=== PATIENT | female | born 1935 | race Caucasian/White ===

== ENCOUNTER 2020-03-11 22:31 | Inpatient (IN) | payer MEDICARE, OTHER ==
--- NOTE | 2020-03-11 23:16 | EKG REPORT ---
SEVERITY:- ABNORMAL ECG - ATRIAL-VENTRICULAR DUAL-PACED COMPLEXES : Confirmed by: Jay Valdez 11-Mar-2020 23:15:38
--- NOTE | 2020-03-11 23:27 | ER Document Report ---
ED Respiratory Problem - General Chief Complaint: Shortness Of Breath Stated Complaint: DIFFICULTY BREATHING Time Seen by Provider: 03/11/20 23:15 Notes: Patient is an 84-year-old female that comes emergency department from a alf for chief complaint of difficulty breathing. Patient states she started having difficulty breathing starting this afternoon, EMS states that she was 94% on room air but dropped down to 90%, she was placed on nasal cannula, she was given 4 mg of Zofran for generalized sensation of nausea. Patient denies v omiting, chest pain, headache. She states she has been compliant with her medications. Past medical history of atrial fibrillation, CHF, AICD. She is on diltiazem, Eliquis, furosemide 20 mg daily. She denies smoking, NM, asthma, COPD. - Related Data Allergies/Adverse Reactions: No Known Allergies Allergy (Unverified 03/12/20 03:28) Past Medical History - General Information source: Patient, Outside Facility Records - Social History Smoking Status: Never Smoker Chew tobacco use (# tins/day): No Frequency of alcohol use: None Drug Abuse: None Lives with: [facility] Family History: Other - unable to obtain Patient has homicidal ideation: No - Past Medical History Cardiac Medical History: Reports: Hx Atrial Fibrillation, Hx Congestive Heart Failure, Hx Hypercholesterolemia, Hx Hypertension GI Medical History: Reports: Hx Gastroesophageal Reflux Disease Past Surgical History: Reports: Hx Pacemaker - Immunizations Hx Diphtheria, Pertussis, Tetanus Vaccination: Yes Review of Systems - Review of Systems Constitutional: See HPI EENT: No symptoms reported Cardiovascular: See HPI Respiratory: See HPI Gastrointestinal: See HPI Genitourinary: No symptoms reported Female Genitourinary: No symptoms reported Musculoskeletal: No symptoms reported Skin: No symptoms reported Hematologic/Lymphatic: No symptoms reported Neurological/Psychological: No symptoms reported Physical Exam - Vital signs Vitals: Resp BP Pulse Ox 27 H 148/59 H 92 03/11/20 22:33 03/11/20 22:33 03/11/20 22:33 - Notes Notes: GENERAL: Alert, interacts well. Appears anxious and has some tachypnea but is not in severe distress HEAD: Normocephalic, atraumatic. EYES: Pupils equal, round, and reactive to light. Extraocular movements intact. ENT: Oral mucosa moist, tongue midline. Oropharynx unremarkable. Airway patent. NECK: Full range of motion. Supple. Trachea midline. No lymphadenopathy. LUNGS: Bilateral Rales heard in the lower lung wynn, mild tachypnea. Clear lungs otherwise. Speaks in full sentences. HEART: Regular rate and rhythm. No murmur ABDOMEN: Soft, non-tender. Non-distended. EXTREMITIES: Moves all 4 extremities spontaneously. 1+ pitting edema bilaterally. BACK: no cervical, thoracic, lumbar midline tenderness. No saddle anesthesia, normal distal neurovascular exam. Moves all extremities in full range of motion. NEUROLOGICAL: Alert and oriented x3. Normal speech. Cranial nerves II through XII grossly intact. Strength 5/5 in all extremities. PSYCH: Speaks anxiously SKIN: Warm, dry, normal turgor. No rashes or lesions noted. Course - Re-evaluation Re-evalutation: Patient was on 4 L nasal cannula, I drop this down to 2 but then she started having desaturation her oxygen down to 89 and 90%. She was replaced on 3 and this seems to be the good balance. Patient has obvious rales in both lower lung wynn, she has bilateral lower extremity edema. She is not significantly hypertensive however. Chest x-ray shows pulmonary vascular congestion per my read, patchy consolidations and effusions per radiology read. BNP is elevated, troponin inde terminate. CBC and chemistry are nonspecific with slightly low potassium and creatinine of 2.5 (I do not have lab work previously for her baseline). Clinical picture is most consistent with CHF exacerbation. No fever, leukocytosis, or cough suggesting infectious cause. Patient will require hospi talization for hypoxia requiring oxygen, CHF exacerbation, difficulty breathing. I discussed with patient, she states full agreement with plan. Discussed with Dr. Medrano, hospitalist, patient accepted to [facility] full admission. - Vital Signs Vital signs: Temp Pulse Resp BP Pulse Ox 97.2 F 62 18 138/76 H 96 03/12/20 04:10 03/12/20 04:10 03/12/20 04:10 03/12/20 04:10 03/12/20 04:10 - Laboratory Result Diagrams: 03/12/20 00:01 03/12/20 00:01 Laboratory results interpreted by me: 03/12/20 03/12/20 03/12/20 00:01 00:01 00:01 MCV 98 H RDW 14.3 H Lymph % (Auto) 10.6 L Seg Neutrophils % 80.1 H VBG HCO3 Sodium 132.9 L Potassium 3.2 L Chloride 87 L Carbon Dioxide 36 H BUN 46 H Creatinine 2.50 H Est GFR ( Amer) 22 L Est GFR (MDRD) Non-Af 18 L NT-Pro-B Natriuret Pep 97664 H Albumin 3.4 L 03/12/20 00:31 MCV RDW Lymph % (Auto) Seg Neutrophils % VBG HCO3 37.9 H Sodium Potassium Chloride Carbon Dioxide BUN Creatinine Est GFR ( Amer) Est GFR (MDRD) Non-Af NT-Pro-B Natriuret Pep Albumin - EKG Interpretation by Me Additional EKG results interpreted by me: EKG shows atrial ventricular dual paced complexes, QTC 620, no overt T wave inversions or ST segment changes, no comparison. Discharge - Discharge Clinical Impression: Pulmonary vascular congestion, Hypoxia, Difficulty breathing Condition: Stable Disposition: ADMITTED INPATIENT Admitting Provider: Mitchell (Hospitalist) Unit Admitted: [facility]
--- NOTE | 2020-03-12 00:22 | RADIOLOGY REPORT (SQ) ---
EXAM DESCRIPTION: X-RAY CHEST- One View CLINICAL HISTORY: Shortness of breath COMPARISON: None TECHNIQUE: Single view of the chest. FINDINGS: There are overlying EKG leads. There are patchy bibasilar opacities with blunting of the bilateral costophrenic angles. The pulmonary vascularity is normal. The cardiomediastinal silhouette is mildly enlarged. Left chest wall cardiac pacer device is in place. There are atherosclerotic vascular calcifications. No suspicious lytic or blastic osseous lesions are identified. IMPRESSION: 1. Patchy bibasilar opacities with evidence of small pleural effusions bilaterally. Findings are nonspecific and differential diagnosis includes infectious and inflammatory causes. Clinical correlation is advised. 2. Mild enlargement of the cardiac silhouette with a cardiac pacer device in place.
[2020-03-12 00:26] LABS: ABSOLUTE BASOPHILS # (AUTO) 0.1 10^3/uL (0.0-0.2); ABSOLUTE MONOCYTES (AUTO) 0.7 10^3/uL (0.1-1.4); ABSOLUTE NEUT (AUTO) 7.4 10^3/uL (1.7-8.2); BASOPHILS % (AUTO) 0.8 % (0-2); EOSINOPHILS % (AUTO) 0.4 % (0-6); HEMATOCRIT 38.7 % (36.0-47.0); HEMOGLOBIN 12.9 g/dL (12.0-15.5); LYMPHOCYTES % (AUTO) 10.6 % (13-45); MEAN CORPUSCULAR HEMOGLOBIN 32.5 pg (27.0-33.4); MEAN CORPUSCULAR HGB CONC 33.2 g/dL (32.0-36.0); MEAN CORPUSCULAR VOLUME 98 fl (80-97); MONOCYTES % (AUTO) 8.1 % (3-13); PLATELET COUNT 279 10^3/uL (150-450); RED BLOOD COUNT 3.95 10^6/uL (3.72-5.28); RED CELL DISTRIBUTION WIDTH 14.3 % (11.5-14.0); SEGMENTED NEUTROPHILS % (AUTO) 80.1 % (42-78); TOTAL CELLS COUNTED % (AUTO) 100 %; WHITE BLOOD COUNT 9.2 10^3/uL (4.0-10.5)
[2020-03-12 00:39] LABS: ALBUMIN 3.4 g/dL (3.5-5.0); ALKALINE PHOSPHATASE 93 U/L (38-126); ANION GAP 10 (5-19); ASPARTATE AMINO TRANSFERASE 24 U/L (14-36); BILIRUBIN,DIRECT 0.2 mg/dL (0.0-0.4); BLOOD UREA NITROGEN 46 mg/dL (7-20); CALCIUM 9.5 mg/dL (8.4-10.2); CARBON DIOXIDE 36 mmol/L (22-30); CHLORIDE 87 mmol/L (98-107); GLUCOSE 109 mg/dL (75-110); POTASSIUM 3.2 mmol/L (3.6-5.0); TOTAL PROTEIN 6.3 g/dL (6.3-8.2)
[2020-03-12 00:52] LABS: TROPONIN I 0.024 ng/mL
[2020-03-12 00:54] LABS: VENOUS BLOOD BASE EXCESS 10.9 mmol/L; VENOUS BLOOD HCO3 37.9 mmol/L (20-32); VENOUS BLOOD PCO2 60.8 mmHg (35-63); VENOUS BLOOD PH 7.41 (7.30-7.42)
[2020-03-12] MEDS ORDERED: FUROSEMIDE INJ/PF 20 MG/2 ML SDV IV ONE (01:03)
[2020-03-12] MEDS ORDERED: NITROGLYCERIN 5 MG (0.2 MG/HR) PATCH.TD24 TD ONE (01:03)
[2020-03-12] MEDS ORDERED: POTASSIUM CHLORIDE 10 MEQ TABLET.ER PO ONE (01:03)
[2020-03-12] MEDS ORDERED: MORPHINE SULFATE 10 MG/ML INJ IV ONE (01:09)
[2020-03-12] MEDS ORDERED: NITROGLYCERIN 2% OINTMENT 1 GM PACKET TP ONE (01:09)
[2020-03-12] MEDS ORDERED: ONDANSETRON HCL INJ/PF 4 MG/2 ML SDV IV PRN (02:21)
[2020-03-12] MEDS ORDERED: MAG HYDROX/AL HYDROX/SIMETH SUSP 30 ML UDCUP PO PRN ×2 (02:21→11:58)
[2020-03-12] MEDS ORDERED: ACETAMINOPHEN 325 MG TABLET PO PRN ×2 (02:21→12:35)
[2020-03-12] MEDS ORDERED: MAGNESIUM HYDROXIDE SUSP 30 ML UDCUP PO PRN (02:21)
[2020-03-12] MEDS ORDERED: LORAZEPAM INJ 2 MG/1 ML VIAL IV PRN (02:28)
[2020-03-12] MEDS ORDERED: MORPHINE SULFATE 10 MG/ML INJ IV PRN ×5 (02:28→02:37)
[2020-03-12] MEDS ORDERED: GUAIFENESIN SYRP 200 MG/10 ML UDC PO PRN (02:28)
--- NOTE | 2020-03-12 06:23 | PDOC H&P ---
History of Present Illness Admission Date/PCP: 03/12/2020 01:51 DEMARIO CASTRO NP Patient complains of: Dyspnea History of Present Illness: JONELLE BARREINTOS is a 84 year old female who presented to the emergency room with acute dyspnea. She admits suddenly developing dyspnea on the afternoon of 03/11/2020. Her dyspnea was accompanied with a drop in her oxygen saturation from 94% on room air to 90% and was improved back to 94% after administration of oxygen via nasal cannula. Her dyspnea was accompanied by nausea without vomiting and was worsened with even minor exertion. She denies other associated or accompanying signs and symptoms. She admits prior similar episodes with her heart problems. She has not identified any additional aggravating or ameliorating factors for her dyspnea. In the emergency room she was found to have acute vascular congestive changes on her chest x-ray and her physical examination confirmed acute congestive heart failure. She was treated with IV morphine, intravenous Lasix and topical nitroglycerin paste in the emergency room with improvement in her status. She was subsequently admitted to the hospital for further evaluation and treatment. Past Medical History Cardiac Medical History: Reports: Atrial Fibrillation, Congestive Heart Failure, Hyperlipidema, Hypertension Pulmonary Medical History: Denies: Asthma, Chronic Obstructive Pulmonary Disease (COPD) EENT Medical History: Denies: Cataracts, Ears - Hearing aids Neurological Medical History: Denies: Hemorrhagic CVA, Ischemic CVA, Seizures Endocrine Medical History: Denies: Diabetes Mellitus Type 1, Diabetes Mellitus Type 2, Hyperthyroidism, Hypothyroidism Renal/ Medical History: Denies: Chronic Kidney Disease, Nephrolithiasis Malignancy Medical History: Reports: None GI Medical History: Reports: Diverticulitis, Gastroesophageal Reflux Disease, Other - Hemorrhoids Denies: Cirrhosis, Hepatitis, Peptic Ulcer Disease Musculoskeltal Medical History: Denies: Arthritis, Gout Skin Medical History: Denies: Eczema, Psoriasis Psychiatric Medical History: Denies: Alcohol Dependency, Substance Abuse, Tobacco Dependency Traumatic Medical History: Reports: None Hematology: Denies: Anemia, Bleeding Tendencies Infectious Medical History: Reports: None Past Surgical History Past Surgical History: Reports: Appendectomy, Cholecystectomy, Pacemaker - AICD, Other - Hemorrhoidectomy, segmental colectomy for diverticulitis, breast biopsy Social History Information Source: Patient Lives with: Longterm Smoking Status: Never Smoker Electronic Cigarette use?: No Frequency of Alcohol Use: None Hx Recreational Drug Use: No Drugs: None Hx Prescription Drug Abuse: No - Advance Directive Resuscitation Status: Full Code Surrogate healthcare decision maker:: Sukhdev Barrientos Family History Family History: CAD. denies: DM, Hypertension, Malignancy Parental Family History Reviewed: Yes Children Family History Reviewed: No Sibling(s) Family History Reviewed.: Yes Medication/Allergy Allergies/Adverse Reactions: No Known Allergies Allergy (Unverified 03/12/20 03:28) Review of Systems Constitutional: ABSENT: chills, fever(s) Eyes: ABSENT: visual disturbances, other - Eye pain Ears: ABSENT: hearing changes, other - Ear pain Nose, Mouth, and Throat: ABSENT: headache(s), sore throat Cardiovascular: PRESENT: as per HPI, dyspnea on exertion. ABSENT: chest pain, palpitations Respiratory: PRESENT: as per HPI, dyspnea. ABSENT: cough Gastrointestinal: PRESENT: nausea. ABSENT: abdominal pain, vomiting Genitourinary: ABSENT: dysuria, hematuria Musculoskeletal: ABSENT: back pain, joint swelling Integumentary: ABSENT: pruritus, rash Neurological: ABSENT: confusion, convulsions, focal weakness, memory loss, syncope Psychiatric: ABSENT: anxiety, depression Endocrine: ABSENT: cold intolerance, heat intolerance Hematologic/Lymphatic: ABSENT: easy bleeding, easy bruising Allergic/Immunologic: ABSENT: seasonal rhinorrhea Physical Exam Vital Signs: Temp Pulse Resp BP Pulse Ox 97.6 F 03/11/20 22:36 Intake & Output 03/10/20 03/11/20 03/12/20 23:59 23:59 23:59 Weight 60.1 kg General appearance: PRESENT: no acute distress, cooperative, other - On supplemental oxygen via nasal cannula at the time of my evaluation Head exam: PRESENT: atraumatic, normocephalic Eye exam: PRESENT: conjunctiva pink. ABSENT: conjunctival injection, scleral icterus Ear exam: PRESENT: normal external ear exam. ABSENT: bleeding, drainage Mouth exam: PRESENT: dry mucosa, neck supple Neck exam: PRESENT: JVD - Bilateral at 30 degrees elevation. ABSENT: thyromegaly, tracheal deviation Respiratory exam: PRESENT: rales - Fine rales in the lower one third of both lung wynn., symmetrical, tachypnea Cardiovascular exam: PRESENT: gallop - S4 gallop rhythm, RRR. ABSENT: clicks, rubs Pulses: PRESENT: normal radial pulses, normal dorsalis pedis pul Vascular exam: PRESENT: normal capillary refill. ABSENT: pallor GI/Abdominal exam: PRESENT: normal bowel sounds, soft. ABSENT: tenderness Rectal exam: PRESENT: deferred Extremities exam: PRESENT: pedal edema - Trace bipedal edema, other - Trace bilateral pretibial edema Musculoskeletal exam: ABSENT: deformity, dislocation Neurological exam: PRESENT: alert, oriented to person, oriented to place, oriented to time, oriented to situation, CN II-XII grossly intact. ABSENT: motor sensory deficit Psychiatric exam: PRESENT: appropriate affect, normal mood Skin exam: PRESENT: dry, intact, warm. ABSENT: jaundice, rash, urticaria Results Laboratory Results: 03/12/20 00:01 03/12/20 00:01 03/12/20 03/12/20 03/12/20 00:01 00:01 00:31 WBC 9.2 RBC 3.95 Hgb 12.9 Hct 38.7 MCV 98 H MCH 32.5 MCHC 33.2 RDW 14.3 H Plt Count 279 Seg Neutrophils % 80.1 H VBG pH 7.41 VBG pCO2 60.8 VBG HCO3 37.9 H VBG Base Excess 10.9 Sodium 132.9 L Potassium 3.2 L Chloride 87 L Carbon Dioxide 36 H Anion Gap 10 BUN 46 H Creatinine 2.50 H Est GFR ( Amer) 22 L Glucose 109 Calcium 9.5 Total Bilirubin 1.0 AST 24 Alkaline Phosphatase 93 Total Protein 6.3 Albumin 3.4 L 03/12/20 00:01 Troponin I 0.024 NT-Pro-B Natriuret Pep 04177 H Impressions: Chest X-Ray 03/11/20 23:22 IMPRESSION: 1. Patchy bibasilar opacities with evidence of small pleural effusions bilaterally. Findings are nonspecific and differential diagnosis includes infectious and inflammatory causes. Clinical correlation is advised. 2. Mild enlargement of the cardiac silhouette with a cardiac pacer device in place. Assessment and Plan - Diagnosis (1) Acute respiratory failure with hypoxia Is this a current diagnosis for this admission?: Yes (2) Acute pulmonary edema with congestive heart failure Is this a current diagnosis for this admission?: Yes (3) Chronic diastolic congestive heart failure Is this a current diagnosis for this admission?: Yes (4) Paroxysmal atrial fibrillation Is this a current diagnosis for this admission?: Yes (5) Chronic anticoagulation Is this a current diagnosis for this admission?: Yes (6) Essential hypertension Is this a current diagnosis for this admission?: Yes (7) Hyperlipidemia Qualifiers: Hyperlipidemia type: unspecified Qualified Code(s): E78.5 - Hyperlipidemia, unspecified Is this a current diagnosis for this admission?: Yes (8) Gastroesophageal reflux disease Qualifiers: Esophagitis presence: esophagitis presence not specified Qualified Code(s): K21.9 - Gastro-esophageal reflux disease without esophagitis Is this a current diagnosis for this admission?: Yes - Plan Summary Summary: Patient will be admitted to [facility] where she will receive routine supportive and symptomatic cares. Patient will be admitted on the congestive heart failure protocol. Consultation with Dr. Lazar will be obtained. An echocardiogram will be obtained. Patient will be treated with morphine sulfate 2 mg IV every hour as needed for severe dyspnea. She will have 1/2 inch of 2% nitroglycerin ointment applied every 6 hours. She received Lasix 40 mg IV in the ER with further dosing at Dr. Lazar's direction. She will receive morphine sulfate 2 to 4 mg IV every 2 hours as needed for pain. She will receive Ativan 1 mg IV every 4 hours as needed anxiety or restlessness. She will be on a cardiac diet. Serial cardiac enzymes and other studies will be obtained per the congestive heart failure protocol. Patient will be resumed on her usual home medications since her medication list can be verified and reconciled. - Time Time Spent with patient: 15-24 minutes Anticipated Discharge Disposition: Assisted Living with Home Health Services Anticipated Discharge Timeframe: within 72 hours - Inpatient Certification Based on my medical assessment, after consideration of the patient's comorbidities, presenting symptoms, or acuity I expect that the services needed warrant INPATIENT care.: Yes I certify that my determination is in accordance with my understanding of Medicare's requirements for reasonable and necessary INPATIENT services [42 CFR 412.3e].: Yes Medical Necessity: Need Close Monitoring Due to Risk of Patient Decompensation, Need For Continuous Telemetry Monitoring, Risk of Complication if Not Cared For in Hospital
[2020-03-12] MEDS: NITROGLYCERIN 2% OINTMENT 1 GM PACKET TP SCH ×3 (07:13→19:43)
[2020-03-12] MEDS ORDERED: DOCUSATE SODIUM 100 MG CAPSULE PO SCH (10:00)
[2020-03-12] MEDS ORDERED: FAMOTIDINE 20 MG TABLET PO SCH (10:00)
[2020-03-12 10:26] LABS: CREATINE KINASE MB 0.65 ng/mL (<4.55); TROPONIN I 0.022 ng/mL
[2020-03-12] MEDS ORDERED: (PENDING PHARMACY ID) (Acetaminophen [Acetaminophen] 500 MG) PO PRN (10:49)
[2020-03-12] MEDS ORDERED: ALUMINUM HYD PO PRN (10:49)
[2020-03-12] MEDS ORDERED: GUAIFENESIN PO PRN (10:49)
[2020-03-12] MEDS ORDERED: LOPERAMIDE HCL 4 MG PO PRN (10:49)
[2020-03-12] MEDS ORDERED: MAG HYDROX PO PRN (10:49)
[2020-03-12] MEDS ORDERED: METHOCARBAMOL 500 MG TABLET PO PRN (10:49)
[2020-03-12] MEDS ORDERED: DEXTROMETHORPHAN PO PRN (10:49)
[2020-03-12] MEDS ORDERED: SIMETH PO PRN (10:49)
[2020-03-12] MEDS ORDERED: [UNRECOGNIZED DRUG - OTHER] PO PRN (10:49)
[2020-03-12] MEDS ORDERED: ACETAMINOPHEN PO PRN (10:49)
[2020-03-12] MEDS ORDERED: (PENDING PHARMACY ID) (Ondansetron Hcl [Ondansetron Hcl] 4 MG) PO PRN (10:49)
[2020-03-12] MEDS ORDERED: [UNRECOGNIZED DRUG - OTHER] PO PRN (10:49)
[2020-03-12] MEDS ORDERED: OXYCODONE HCL PO PRN (10:49)
--- NOTE | 2020-03-12 10:52 | PDOC PROGRESS REPORT ---
Subjective Progress Note for:: 03/12/20 Subjective:: 84 year old female who presented to the emergency room with acute dyspnea. She admits suddenly developing dyspnea on the afternoon of 03/11/2020. Her dyspnea was accompanied with a drop in her oxygen saturation from 94% on room air to 90% and was improved back to 94% after administration of oxygen via nasal cannula. Her dyspnea was accompanied by nausea without vomiting and was worsened with even minor exertion. She denies other associated or accompanying signs and symptoms. She admits prior similar episodes with her heart problems. She has not identified any additional aggravating or ameliorating factors for her dyspnea. In the emergency room she was found to have acute vascular congestive changes on her chest x-ray and her physical examination confirmed acute congestive heart failure. She was treated with IV morphine, intravenous Lasix and topical nitroglycerin paste in the emergency room with improvement in her status. She was subsequently admitted to the hospital for further evaluation and treatment. 03/12/2020-elderly female comfortable in the bed communicating well. Not in distress. Pulse ox 93% on 3.5 lts consultation with cardiology requested. Reason For Visit: ACUTE ON CHRONIC DIASTOLIC CONGESTIVE HEART FAILUR Physical Exam Vital Signs: Temp Pulse Resp BP Pulse Ox 97.3 F 63 22 H 130/57 H 93 03/12/20 07:35 03/12/20 07:35 03/12/20 07:35 03/12/20 07:35 03/12/20 07:35 Intake & Output 03/11/20 03/12/20 03/13/20 06:59 06:59 06:59 Weight 58 kg General appearance: PRESENT: no acute distress, cooperative, thin Head exam: PRESENT: atraumatic Eye exam: PRESENT: conjunctiva pink, PERRLA Ear exam: PRESENT: normal external ear exam Mouth exam: PRESENT: dry mucosa, neck supple Neck exam: PRESENT: JVD Respiratory exam: PRESENT: crackles, decreased breath sounds Cardiovascular exam: PRESENT: RRR. ABSENT: diastolic murmur, rubs, systolic murmur GI/Abdominal exam: PRESENT: normal bowel sounds, soft. ABSENT: distended, guarding, mass, organolmegaly, rebound, tenderness Rectal exam: PRESENT: deferred Extremities exam: PRESENT: full ROM. ABSENT: calf tenderness, clubbing, pedal edema Neurological exam: PRESENT: alert, awake, oriented to person, oriented to place, oriented to time, oriented to situation, CN II-XII grossly intact. ABSENT: motor sensory deficit Psychiatric exam: PRESENT: appropriate affect, normal mood. ABSENT: homicidal ideation, suicidal ideation Results Laboratory Results: 03/12/20 00:01 03/12/20 00:01 03/12/20 03/12/20 03/12/20 00:01 00:01 00:01 WBC 9.2 RBC 3.95 Hgb 12.9 Hct 38.7 MCV 98 H MCH 32.5 MCHC 33.2 RDW 14.3 H Plt Count 279 Seg Neutrophils % 80.1 H VBG pH VBG pCO2 VBG HCO3 VBG Base Excess Sodium 132.9 L Potassium 3.2 L Chloride 87 L Carbon Dioxide 36 H Anion Gap 10 BUN 46 H Creatinine 2.50 H Est GFR ( Amer) 22 L Glucose 109 Calcium 9.5 Magnesium 2.2 Total Bilirubin 1.0 AST 24 Alkaline Phosphatase 93 Total Protein 6.3 Albumin 3.4 L 03/12/20 00:31 WBC RBC Hgb Hct MCV MCH MCHC RDW Plt Count Seg Neutrophils % VBG pH 7.41 VBG pCO2 60.8 VBG HCO3 37.9 H VBG Base Excess 10.9 Sodium Potassium Chloride Carbon Dioxide Anion Gap BUN Creatinine Est GFR ( Amer) Glucose Calcium Magnesium Total Bilirubin AST Alkaline Phosphatase Total Protein Albumin 03/12/20 03/12/20 03/12/20 00:01 09:25 09:25 Creatine Kinase 36 CK-MB (CK-2) 0.65 Troponin I 0.024 0.022 NT-Pro-B Natriuret Pep 98799 H Impressions: Chest X-Ray 03/11/20 23:22 IMPRESSION: 1. Patchy bibasilar opacities with evidence of small pleural effusions bilaterally. Findings are nonspecific and differential diagnosis includes infectious and inflammatory causes. Clinical correlation is advised. 2. Mild enlargement of the cardiac silhouette with a cardiac pacer device in place. Assessment and Plan - Diagnosis (1) Acute respiratory failure with hypoxia Is this a current diagnosis for this admission?: Yes Plan: 03/12/2020-patient admitted with acute respiratory failure with hypoxia most likely secondary to acute on chronic exacerbation of CHF. Pulse ox is 93% on 3.5 L oxygen. Plan is to continue the present management at this time. (2) Acute pulmonary edema with congestive heart failure Is this a current diagnosis for this admission?: Yes Plan: 03/12/2020-patient admitted with acute pulmonary edema secondary to acute on chronic CHF exacerbation. Plan is to request for echocardiogram consultation with cardiology is requested that this time. Patient received 1 dose of IV Lasix in the ER. At this time patient is not on Lasix awaiting further cardiology recommendations. (3) Essential hypertension Is this a current diagnosis for this admission?: No Plan: Weight 1120-patient blood pressure this morning is 130/60. Stable. Patient is not on antihypertensives at this time. (4) Paroxysmal atrial fibrillation Is this a current diagnosis for this admission?: No Plan: 03/12/2020-patient has history of paroxysmal atrial fibrillation heart rate is 63 today. Patient is on Eliquis at home plan is to resume the medication during the hospital stay. (5) Gastroesophageal reflux disease Qualifiers: Esophagitis presence: esophagitis presence not specified Qualified Code(s): K21.9 - Gastro-esophageal reflux disease without esophagitis Is this a current diagnosis for this admission?: No (6) Chronic anticoagulation Is this a current diagnosis for this admission?: No Plan: 03/12/2020-patient is on Eliquis at home. Plan is to continue the medication during the hospital stay. - Plan Summary Summary: Patient will be admitted to [facility] where she will receive routine supportive and symptomatic cares. Patient will be admitted on the congestive heart failure protocol. Consultation with Dr. Lazar will be obtained. An echocardiogram will be obtained. Patient will be treated with morphine sulfate 2 mg IV every hour as needed for severe dyspnea. She will have 1/2 inch of 2% nitroglycerin ointment applied every 6 hours. She received Lasix 40 mg IV in the ER with further dosing at Dr. Lazar's direction. She will receive morphine sulfate 2 t o 4 mg IV every 2 hours as needed for pain. She will receive Ativan 1 mg IV every 4 hours as needed anxiety or restlessness. She will be on a cardiac diet. Serial cardiac enzymes and other studies will be obtained per the congestive heart failure protocol. Patient will be resumed on her usual home medications since her medication list can be verified and reconciled. - Time Anticipated Discharge Disposition: Home, Self Care Anticipated Discharge Timeframe: within 72 hours
[2020-03-12] MEDS ORDERED: GUAIFENESIN/D-METHORPHAN (200-20 MG) SYRUP 10 ML PO PRN (11:56)
[2020-03-12] MEDS ORDERED: LOPERAMIDE HCL 2 MG CAPSULE PO PRN (12:00)
[2020-03-12] MEDS ORDERED: OXYCODONE-ACETAMINOPHEN 5-325 MG TABLET PO PRN (12:10)
[2020-03-12] MEDS ORDERED: OXYCODONE HCL IR 5 MG TABLET PO PRN (12:33)
[2020-03-12] MEDS ORDERED: CALCIUM CARBONATE 600 MG/VITAMIN D3 400 UNIT TABLET PO SCH (13:00)
[2020-03-12] MEDS ORDERED: HEPARIN SOD (PORCINE) 5,000 UNIT/ML 1 ML VIAL SUBCUT SCH (14:00)
[2020-03-12] MEDS ORDERED: IPRATROPIUM/ALBUTEROL 0.5-2.5 MG/3 ML AMPUL NEB PRN (17:35)
[2020-03-12] MEDS ORDERED: FLUMAZENIL INJ 0.5 MG/5 ML VIAL ONE (17:41)
[2020-03-12] MEDS ORDERED: APIXABAN 2.5 MG TABLET PO SCH (18:00)
--- NOTE | 2020-03-12 18:01 | RADIOLOGY REPORT (SQ) ---
EXAM DESCRIPTION: CHEST SINGLE VIEW IMAGES COMPLETED DATE/TIME: 03/12/2020 5:26 pm REASON FOR STUDY: SOB COMPARISON: 03/11/2020 EXAM PARAMETERS: NUMBER OF VIEWS: One view. TECHNIQUE: Single frontal radiographic view of the chest acquired. RADIATION DOSE: NA LIMITATIONS: None. FINDINGS: LUNGS AND PLEURA: Bilateral pleural effusions. There is opacification in the medial aspec t of the right upper lobe. There is mild perihilar opacification on the right more than left. MEDIASTINUM AND HILAR STRUCTURES: No masses. Contour normal. HEART AND VASCULAR STRUCTURES: Heart size is borderline. No yvonne pulmonary edema. BONES: No acute findings. HARDWARE: Pacemaker. OTHER: No other significant finding. IMPRESSION: Borderline cardiomegaly with no yvonne pulmonary edema. Bilateral pleural effusions. Ca nnot exclude airspace disease in the right upper lobe and in the perihilar region on the right. Frankie ot exclude an atypical infectious/ inflammatory process. TECHNICAL DOCUMENTATION: JOB ID: [id number] 2010 [employer]- All Rights Reserved Reading location - IP/workstation name: [email or web address]
[2020-03-12] MEDS ORDERED: SODIUM BICARBONATE 8.4% INJ 50 MEQ/50 ML DISP.SYRIN ONE ×2 (18:03→20:00)
--- NOTE | 2020-03-12 18:03 | RADIOLOGY REPORT (SQ) ---
EXAM DESCRIPTION: KUB/ABDOMEN (SINGLE VIEW) IMAGES COMPLETED DATE/TIME: 03/12/2020 5:26 pm REASON FOR STUDY: abd pain COMPARISON: None. NUMBER OF VIEWS: One view. TECHNIQUE: Supine radiographic image of the abdomen acquired. LIMITATIONS: None. FINDINGS: BOWEL GAS PATTERN: Normal bowel gas pattern. No dilated loops. CALCIFICATIONS: No suspicious calcifications. SOFT TISSUES: No gross mass or suggestion of organomegaly. HARDWARE: None in the abdomen. BONES: No acute fracture. No worrisome bone lesions. OTHER: No other significant finding. IMPRESSION: NO RADIOGRAPHIC EVIDENCE FOR ACUTE ABDOMINAL DISEASE. TECHNICAL DOCUMENTATION: JOB ID: [id number] 2010 [email or web address]- All Rights Reserved Reading location - IP/workstation name: [email or web address]
[2020-03-12 18:16] LABS: ANION GAP 12 (5-19); BLOOD UREA NITROGEN 48 mg/dL (7-20); CALCIUM 9.3 mg/dL (8.4-10.2); CARBON DIOXIDE 34 mmol/L (22-30); CHLORIDE 89 mmol/L (98-107); GLUCOSE 116 mg/dL (75-110)
[2020-03-12 18:20] LABS: CREATINE KINASE MB 0.61 ng/mL (<4.55); TROPONIN I 0.023 ng/mL
[2020-03-12] MEDS ORDERED: DOPAMINE HCL/DEXTROSE 5%-WATER 800 MG/250 ML RTUINJ IV PRN (18:20)
[2020-03-12 18:24] LABS: POTASSIUM 4.4 mmol/L (3.6-5.0)
--- NOTE | 2020-03-12 18:53 | Progress Note ---
Provider Note Provider Note: 84-year-old female admitted for CHF exacerbation around 5:30 PM the nurses called me and told me patient is aspirated after vomiting and pulse oxes are in the 80s I went to see the patient on arrival noticed that patient is not breathing so we called the rapid response and called respiratory therapist started bagging providing oxygen with Ambu bag during the process we lost the pulse we tried to intubate her twice it was unsuccessful and anesthesiologist came and intubated the patient after 20 minutes of CPR Juan is obtained we gave a couple doses of epi, bicarb, calcium gluconate, atropine during the CPR. During the process we gave 200 J of shock 1 time after 20 minutes of CPR [place] is attained. Patient was started on dopamine drip and we moved her to ICU for further management. Postintubation chest x-ray will be requested. I called the family members and left a message to call us back. Still overall prognosis poor condition is critical at this time. Signout was given to the tack cutter at this time. My impression is acute respiratory failure most likely secondary to aspiration pneumonia.
--- NOTE | 2020-03-12 19:36 | EKG REPORT ---
SEVERITY:- ABNORMAL ECG - ATRIAL-PACED RHYTHM Probably V paced rhythm : Confirmed by: David Lazar MD 12-Mar-2020 19:36:17
--- NOTE | 2020-03-12 19:49 | PDOC CONSULTATION ---
Consultation Consult Date: 03/12/20 Provider Consulted: TIEN IRENE Consult reason:: Congestive heart failure History of Present Illness Admission Date/PCP: 03/12/20 01:54 DEMARIO CASTRO NP Patient complains of: Unable to voice complaints. History of Present Illness: JONELLE BARRIENTOS is a 84 year old female Who was admitted to the hospital with suspicion of acute decompensated congestive heart failure. At the time of my evaluation patient had experienced an acute respiratory arrest after having an episode of emesis likely due to aspiration of vomitus. Patient was successfully resuscitated. She was started on pressors and also received atropine. Further history cannot be obtained. Past Medical History Cardiac Medical History: Reports: Atrial Fibrillation, Congestive Heart Failure, Hyperlipidema, Hypertension Pulmonary Medical History: Denies: Asthma, Chronic Obstructive Pulmonary Disease (COPD) EENT Medical History: Denies: Cataracts, Ears - Hearing aids Neurological Medical History: Denies: Hemorrhagic CVA, Ischemic CVA, Seizures Endocrine Medical History: Denies: Diabetes Mellitus Type 1, Diabetes Mellitus Type 2, Hyperthyroidism, Hypothyroidism Renal/ Medical History: Denies: Chronic Kidney Disease, Nephrolithiasis Malignancy Medical History: Reports: None GI Medical History: Reports: Diverticulitis, Gastroesophageal Reflux Disease, Other - Hemorrhoids Denies: Cirrhosis, Hepatitis, Peptic Ulcer Disease Musculoskeltal Medical History: Denies: Arthritis, Gout Skin Medical History: Denies: Eczema, Psoriasis Psychiatric Medical History: Denies: Alcohol Dependency, Depression, Substance Abuse, Tobacco Dependency Traumatic Medical History: Reports: None Hematology: Denies: Anemia, Bleeding Tendencies Infectious Medical History: Reports: None Past Surgical History Past Surgical History: Reports: Appendectomy, Cholecystectomy, Pacemaker, Other - Hemorrhoidectomy, segmental colectomy for diverticulitis, breast biopsy Social History Lives with: Custodial Smoking Status: Never Smoker Electronic Cigarette use?: No Frequency of Alcohol Use: None Hx Recreational Drug Use: No Drugs: None Hx Prescription Drug Abuse: No - Advance Directive Resuscitation Status: Full Code Family History Family History: Other - unable to obtain Parental Family History Reviewed: No - Patient is unresponsive. Cannot be obtained Children Family History Reviewed: NA Sibling(s) Family History Reviewed.: NA Medication/Allergy Home Medications: Acetaminophen 500 mg PO Q4HP PRN 03/12/20 Acetaminophen [Tylenol] 325 mg PO DAILY 03/12/20 Allopurinol [Zyloprim 300 mg Tablet] 300 mg PO DAILY 03/12/20 Apixaban [Eliquis 2.5 mg Tablet] 2.5 mg PO BID 03/12/20 Atorvastatin Calcium [Lipitor 10 mg Tablet] 10 mg PO QHS 03/12/20 Calcium Carbonate/Vitamin D3 [Calcium 600-Vit D3 200 Tablet] 1 each PO DAILY 03/12/20 Diltiazem HCl [Cardizem Cd 120 mg Capsule] 120 mg PO DAILY 03/12/20 Ferrous Sulfate [Feosol 325 mg Tablet] 325 mg PO DAILY 03/12/20 Flecainide Acetate [Tambocor 100 Mg Tablet] 75 mg PO QHS 03/12/20 Flecainide Acetate [Tambocor 100 Mg Tablet] 150 mg PO QAM 03/12/20 Furosemide [Lasix] 20 mg PO DAILY 03/12/20 Gemfibrozil [Lopid 600 mg Tablet] 600 mg PO DAILY 03/12/20 Guaifenesin [Robafen] 10 ml PO Q4HP PRN 03/12/20 Guaifenesin/Dextromethorphan [Robafen Dm Cough 100-10 mg/5Ml] 10 ml PO Q4HP PRN 03/12/20 Hydrochlorothiazide [Hydrodiuril 25 mg Tablet] 25 mg PO DAILY 03/12/20 Loperamide HCl [Imodium A-D] 4 mg PO PRN PRN 03/12/20 Mag Hydrox/Aluminum Hyd/Simeth [Dedra-Lanta Liquid] 30 ml PO Q4HP PRN 03/12/20 Magnesium Hydroxide [Milk of Magnesia 30 ml Udcup] 30 ml PO DAILYP PRN 03/12/20 Methocarbamol [Robaxin 500 mg Tablet] 1,000 mg PO TIDP PRN 03/12/20 Neomycin/Bacitracin/Polymyxinb [Triple Antibiotic Ointment] 1 each TP DAILY 03/12/20 Ondansetron HCl 4 mg PO Q8HP PRN 03/12/20 Oxycodone HCl/Acetaminophen [Oxycodon-Acetaminophen 2.5-325] 1 each PO DAILYP PRN 03/12/20 Pantoprazole Sodium [Protonix [address] Tablet] 40 mg PO QAM 03/12/20 Allergies/Adverse Reactions: No Known Allergies Allergy (Unverified 03/12/20 03:28) Review of Systems ROS unobtainable: Due to endotracheal tube, Due to mental status Physical Exam Vital Signs: Temp Pulse Resp BP Pulse Ox 97.7 F 61 20 141/91 H 100 03/12/20 16:31 03/12/20 16:31 03/12/20 16:31 03/12/20 16:31 03/12/20 18:51 Intake & Output 03/11/20 03/12/20 03/13/20 06:59 06:59 06:59 Weight 58 kg General appearance: PRESENT: mild distress Head exam: PRESENT: atraumatic, normocephalic Eye exam: PRESENT: conjunctiva pale Respiratory exam: PRESENT: decreased breath sounds, symmetrical Cardiovascular exam: PRESENT: +S1, +S2, other - Left upper chest wall has permanent pacemaker pocket. Well-healed. No surface excoriation or edema or hematoma Pulses: PRESENT: other - Pulses are faint Neurological exam: PRESENT: other - Unable to assess. Obtunded Skin exam: PRESENT: dry, intact Results Laboratory Results: 03/12/20 00:01 03/12/20 17:30 03/12/20 03/12/20 03/12/20 00:01 00:01 00:01 WBC 9.2 RBC 3.95 Hgb 12.9 Hct 38.7 MCV 98 H MCH 32.5 MCHC 33.2 RDW 14.3 H Plt Count 279 Seg Neutrophils % 80.1 H VBG pH VBG pCO2 VBG HCO3 VBG Base Excess Sodium 132.9 L Potassium 3.2 L Chloride 87 L Carbon Dioxide 36 H Anion Gap 10 BUN 46 H Creatinine 2.50 H Est GFR ( Amer) 22 L Glucose 109 Calcium 9.5 Magnesium 2.2 Total Bilirubin 1.0 AST 24 Alkaline Phosphatase 93 Total Protein 6.3 Albumin 3.4 L 03/12/20 03/12/20 03/12/20 00:31 17:30 17:30 WBC RBC Hgb Hct MCV MCH MCHC RDW Plt Count Seg Neutrophils % VBG pH 7.41 VBG pCO2 60.8 VBG HCO3 37.9 H VBG Base Excess 10.9 Sodium 134.5 L Potassium 4.4 D Chloride 89 L Carbon Dioxide 34 H Anion Gap 12 BUN 48 H Creatinine 2.74 H Est GFR ( Amer) 20 L Glucose 116 H Calcium 9.3 Magnesium 2.2 Total Bilirubin AST Alkaline Phosphatase Total Protein Albumin 08/11/20 08/11/20 08/11/20 00:01 09:25 09:25 Creatine Kinase 36 CK-MB (CK-2) 0.65 Troponin I 0.024 0.022 NT-Pro-B Natriuret Pep [id number] H 03/12/20 03/12/20 03/12/20 17:30 17:30 17:30 Creatine Kinase 39 CK-MB (CK-2) 0.61 Troponin I 0.023 Cancelled NT-Pro-B Natriuret Pep [id number] H EKG Comments: Chest x-ray 03/11/2020 Left-sided dual-chamber permanent pacemaker bilateral pulmonary edema Twelve-lead EKG 03/11/2020 AV paced rhythm Transthoracic echocardiogram 03/12/2020. Left ventricular ejection fraction is moderately diminished and is estimated at 35 to 40% Moderate mitral regurgitation and moderate aortic insufficiency are noted Small pericardial effusion without tamponade physiology Postcode EKG 03/12/2020 Ventricular paced rhythm 44 bpm Impressions: Chest X-Ray 03/12/20 00:00 IMPRESSION: Borderline cardiomegaly with no yvonne pulmonary edema. Bilateral pleural effusions. Cannot exclude airspace disease in the right upper lobe and in the perihilar region on the right. Cannot exclude an atypical infectious/ inflammatory process. KUB X-Ray 03/12/20 00:00 IMPRESSION: NO RADIOGRAPHIC EVIDENCE FOR ACUTE ABDOMINAL DISEASE. Assessment & Plan - Diagnosis (1) Acute pulmonary edema with congestive heart failure Is this a current diagnosis for this admission?: Yes (2) Acute respiratory failure with hypoxia Is this a current diagnosis for this admission?: Yes Plan: Most likely patient experienced an acute respiratory insult on account of aspiration of vomitus. She probably has hypoxic insult with associated metabolic derangements Supportive care for this endotracheal tube (3) Paroxysmal atrial fibrillation Is this a current diagnosis for this admission?: No Plan: Medication profile suggests that the patient is being managed with a rhythm control strategy with flecainide as well as systemic anticoagulation with apixaban Given presence of congestive heart failure flecainide would be not an ideal drug for this lady and would recommend stopping this Would prefer rate control strategy especially since patient has permanent pacemaker in situ. - Notes Notes: Her medication profile suggest that patient is being managed for atrial fibrillation with a rhythm control strategy consisting of flecainide as well as apixaban for systemic anticoagulation Would recommend discontinue flecainide at this point especially given LV dysfunction and congestive heart failure. Continue systemic anticoagulation if possible
[2020-03-12 19:54] VITALS: BP 156/105
--- NOTE | 2020-03-12 19:55 | XCELERA REPORT ---
[address] [address] Transthoracic Echocardiogram Report Name: JONELLE BARRIENTOS Age: 84 yrs Gender: Female : 1935 Patient Status: Inpatient Patient Location: [facility]^A Study Date: 03/12/2020 01:53 PM History: CHF Height: 65 in Weight: 127 lb BSA: 1.6 m2 Procedure: A complete two-dimensional transthoracic echocardiogram was performed (2D, M-mode, spectral and color flow Doppler). Study Quality: Technically suboptimal. Reason For Study: chf Previous Evaluation: No previous studies were available. History: Shortness of breath. CHF. Ordering Physician: CHRISTIE CORADO Performed By: Merline Mcmillan Interpretation Summary Left ventricular systolic function is moderately reduced. The Ejection Fraction estimate is 35-40% The right ventricular systolic function is moderately reduced. There is a moderate amount of mitral regurgitation There is a moderate amount of aortic regurgitation There is a moderate amount of tricuspid regurgitation There is moderate pulmonary hypertension by echo Small pericardial effusion. MMode/2D Measurements & Calculations RVDd: 3.5 cm LVIDd: 5.4 cm FS: 30.5 % Ao root diam: 2.4 cm IVSd: 0.86 cm LVIDs: 3.7 cm EDV(Teich): 138.8 ml Ao root area: 4.4 cm2 LVPWd: 0.87 cm ESV(Teich): 59.1 ml LA dimension: 4.3 cm EF(Teich): 57.4 % Doppler Measurements & Calculations MV E max anson: MV P1/2t max anson: Ao V2 max: AI max anson: 96.3 cm/sec 97.2 cm/sec 124.2 cm/sec 390.9 cm/sec MV A max anson: MV P1/2t: 53.9 msec Ao max PG: AI max P.4 cm/sec MVA(P1/2t): 4.1 cm2 6.2 mmHg 61.1 mmHg MV E/A: 1.9 MV dec slope: AI dec slope: 197.2 cm/sec2 528.4 cm/sec2 AI P1/2t: MV dec time: 580.5 msec 0.17 sec LV V1 max PG: PA V2 max: PI end-d anson: TR max anson: 2.7 mmHg 78.5 cm/sec 188.7 cm/sec 343.4 cm/sec LV V1 max: PA max P.5 mmHg TR max P.9 cm/sec 47.2 mmHg LV dP/dt: 454.0 mmHg/s AV P1/2t-pr_phl: MV P1/2t-pr_phl: 580.5 msec 53.9 msec Left Ventricle The left ventricle is mildly dilated. There is mild concentric left ventricular hypertrophy. Left ventricular systolic function is moderately reduced. The Ejection Fraction estimate is 35-40%. LV diastolic function not assessed. Apical wall motion abnormality may reflect pacemaker activation. There is moderate global hypokinesis of the left ventricle. Right Ventricle The right ventricle is mildly dilated. The right ventricular systolic function is moderately reduced. Atria The right atrium is mildly dilated. The left atrium is mildly dilated. Mitral Valve The mitral valve leaflets are sclerotic and show some degree of functional abnormality. There is no mitral valve stenosis. There is a moderate amount of mitral regurgitation. Aortic Valve The aortic valve is sclerotic and shows some degree of functional abnormality. The aortic valve is mildly calcified. There is no aortic valve stenosis. There is a moderate amount of aortic regurgitation. Tricuspid Valve The tricuspid valve is not well visualized, but is grossly normal. There is no tricuspid stenosis. There is a moderate amount of tricuspid regurgitation. Right ventricular systolic pressure is estimated to be elevated at 50-60mmHg. There is moderate pulmonary hypertension by echo. Pulmonic Valve The pulmonic valve is not well seen, but is grossly normal. There is a mild to moderate amount of pulmonic regurgitation. Great Vessels The aortic root is normal size. The inferior vena cava appeared dilated and decreased < 50% with respiration (RAP 15-20 mmHg). Effusions Small pericardial effusion. There are no echocardiographic or Doppler indications for cardiac tamponade. : CHRISTIE CORADO Anil
[2020-03-12] MEDS ORDERED: EPINEPHRINE INJ 1 MG/10 ML DISP.SYRIN ONE (20:00)
[2020-03-12] MEDS ORDERED: ATROPINE SULFATE INJ 1 MG/10 ML DISP.SYRIN IV ONE (20:00)
[2020-03-12] MEDS ORDERED: CALCIUM GLUCONATE 1000 MG/10 ML INJ IV ONE (20:00)
[2020-03-12] MEDS ORDERED: DOPAMINE HCL/D5W 800 MG/250 ML RTU BAG IV ONE (20:00)
[2020-03-12] MEDS ORDERED: NORMAL SALINE INJ/PF 0.9% 10 ML SDV IV PRN (20:30)
--- NOTE | 2020-03-12 21:23 | PDOC CRITICAL CARE PROG REPORT ---
General Date:: 03/12/20 ICU Day:: 1 Ventilator Day:: 1 Resuscitation Status: Full Code Events in the past 12 to 24 Hours:: This 84-year-old female is seen in consultation at the request of Dr. James Granados for recommendations on further evaluation and management of post CPR resuscitation. The patient transferred to the ICU after rapid response team was called for altered mental status and hypoxic respiratory failure. The patie nt was noted to be having recurrent episodes of aspiration throughout the day, according to the floor nurse. She had progressively increasing oxygen requirements throughout the course of the day. The nurse reports that the patient got to the point of demonstrating confusion, removing the nonrebreather mask, picking at her IVs. At that time, the patient was administered Ativan for agitation. She reportedly had acute deterioration in mental status and respiratory suppression, prompting call to the rapid response team. She subsequently deteriorated further and required a CODE BLUE call. Discussion with Dr. Granados reveals that she required approximately 20 minutes of CPR efforts. She was intubated subsequent to ROSC and transferred to the ICU. Central line was emergently placed in the ICU immediately upon arrival due to lack of vascular access. REVIEW OF SYSTEMS: Unable to obtain due to altered mental status and endotracheal intubation. New PAST MEDICAL HISTORY * Atrial fibrillation * congestive heart failure * hyperlipidemia * hypertension * Appendectomy * Cholecystectomy * Permanent pacemaker/AICD * Hemorrhoidectomy * Segmental colectomy for diverticulitis * Breast biopsy SOCIAL HISTORY * Tobacco: Denies * Alcohol: Denies * Drugs: Denies FAMILY HISTORY: significant for coronary artery disease. ALLERGIES: nkda Review of systems relevant to events:: Unabale to obtain due to altered mental status and endotracheal intubation. Reason for ICU Addmission:: post-CPR resuscitation - Medications: Medications reviewed and adjusted accordingly: Yes Vasopressors:: dopamine Physical Exam Vital Signs: Temp Pulse Resp BP Pulse Ox 97.7 F 57 L 20 156/105 H 100 03/12/20 16:31 03/12/20 18:35 03/12/20 16:31 03/12/20 18:35 03/12/20 18:51 Intake & Output 03/11/20 03/12/20 03/13/20 06:59 06:59 06:59 Intake Total 8 Balance 8 Weight 58 kg Weight/Height Weight 58 kg Height 1.65 m General appearance: PRESENT: no acute distress, thin Head exam: PRESENT: atraumatic, normocephalic Eye exam: PRESENT: conjunctiva pale, EOMI, PERRLA Mouth exam: PRESENT: moist, tongue midline Neck exam: ABSENT: carotid bruit, JVD, lymphadenopathy, thyromegaly Respiratory exam: PRESENT: rales, rhonchi. ABSENT: wheezes Cardiovascular exam: PRESENT: irregular rhythm. ABSENT: diastolic murmur, rubs, systolic murmur Pulses: PRESENT: normal carotid pulses, normal femoral pulses GI/Abdominal exam: PRESENT: normal bowel sounds, soft, other - ventral hernias (2). ABSENT: distended, guarding, mass, organolmegaly, rebound, tenderness Extremities exam: PRESENT: full ROM. ABSENT: calf tenderness, clubbing, pedal edema Neurological exam: PRESENT: altered, CN II-XII grossly intact, other - myoclonic jerks Skin exam: PRESENT: dry, intact, warm. ABSENT: cyanosis, rash Tubes/Lines: PRESENT: Endotracheal Tube, Central Line Laboratory/Radiographs Laboratory Results: 03/12/20 00:01 03/12/20 17:30 03/12/20 03/12/20 03/12/20 00:01 00:01 00:01 WBC 9.2 RBC 3.95 Hgb 12.9 Hct 38.7 MCV 98 H MCH 32.5 MCHC 33.2 RDW 14.3 H Plt Count 279 Seg Neutrophils % 80.1 H VBG pH VBG pCO2 VBG HCO3 VBG Base Excess Sodium 132.9 L Potassium 3.2 L Chloride 87 L Carbon Dioxide 36 H Anion Gap 10 BUN 46 H Creatinine 2.50 H Est GFR ( Amer) 22 L Glucose 109 Calcium 9.5 Magnesium 2.2 Total Bilirubin 1.0 AST 24 Alkaline Phosphatase 93 Total Protein 6.3 Albumin 3.4 L 03/12/20 03/12/20 03/12/20 00:31 17:30 17:30 WBC RBC Hgb Hct MCV MCH MCHC RDW Plt Count Seg Neutrophils % VBG pH 7.41 VBG pCO2 60.8 VBG HCO3 37.9 H VBG Base Excess 10.9 Sodium 134.5 L Potassium 4.4 D Chloride 89 L Carbon Dioxide 34 H Anion Gap 12 BUN 48 H Creatinine 2.74 H Est GFR ( Amer) 20 L Glucose 116 H Calcium 9.3 Magnesium 2.2 Total Bilirubin AST Alkaline Phosphatase Total Protein Albumin 03/12/20 03/12/20 03/12/20 00:01 09:25 09:25 Creatine Kinase 36 CK-MB (CK-2) 0.65 Troponin I 0.024 0.022 NT-Pro-B Natriuret Pep [id number] H 03/12/20 03/12/20 03/12/20 17:30 17:30 17:30 Creatine Kinase 39 CK-MB (CK-2) 0.61 Troponin I 0.023 Cancelled NT-Pro-B Natriuret Pep [id number] H Impressions: Chest X-Ray 03/12/20 00:00 IMPRESSION: Borderline cardiomegaly with no yvonne pulmonary edema. Bilateral pleural effusions. Cannot exclude airspace disease in the right upper lobe and in the perihilar region on the right. Cannot exclude an atypical infectious/ inflammatory process. KUB X-Ray 03/12/20 00:00 IMPRESSION: NO RADIOGRAPHIC EVIDENCE FOR ACUTE ABDOMINAL DISEASE. All labs, radiographs, diagnostic studies and EKGs were personally reviewed: Yes In addition, reports of radiographic and diagnostic studies were read: Yes Assessment and Plan - Diagnosis (1) Acute hypoxemic respiratory failure Is this a current diagnosis for this admission?: Yes (2) Aspiration into airway Is this a current diagnosis for this admission?: Yes (3) Atrial fibrillation Qualifiers: Atrial fibrillation type: permanent Qualified Code(s): I48.21 - Permanent atrial fibrillation Is this a current diagnosis for this admission?: Yes (4) Acute renal failure Is this a current diagnosis for this admission?: Yes (5) Acute decompensated heart failure Is this a current diagnosis for this admission?: Yes (6) Adverse effect due to correct medicinal substance, properly administered Qualifiers: Encounter type: initial encounter Qualified Code(s): T50.905A - Adverse effect of unspecified drugs, medicaments and biological substances, initial encounter Is this a current diagnosis for this admission?: Yes Plan: During the course of initial ICU evaluation, the patient's son (next of kin) called and reported that the patient was to be made a DNR. He is driving in to provide paperwork to demonstrate that she had an advanced directive and durable DNR and to determine whether or not continued definitive care was appropriate. Per his instructions, the patient was made DNR with the understanding that definitve treatment (except CPR) would continue at least until he arrived but that CPR would not be performed. The patient deteriorated to asystole (pacemaker fired repeatedly without capture). See summary/discharge summary. Critical Time Critical Time (minutes): 120 Level of Care: ICU -: 1. The care of a critical patient is a dynamic process. This note is a life assurance representative synopsis but static in nature. The timeframe for treatments given in order is not necessarily the actual time these treatments may have been done. 2. This patient requires critical care secondary to ongoing requirements for therapy not offered or safe outside the critical care environment. Transfer to a lower level of care will result in altered life or limb morbidity and mortality. 3. Multidisciplinary rounds completed. 4. ABCDE bundle addressed.
[2020-03-12] MEDS ORDERED: FUROSEMIDE INJ/PF 40 MG/4 ML SDV IV SCH (22:00)
[2020-03-12] MEDS ORDERED: ATORVASTATIN CALCIUM 10 MG TABLET PO SCH (22:00)
[2020-03-12] MEDS ORDERED: FLECAINIDE ACETATE 100 MG TABLET PO SCH ×2 (22:00)
--- NOTE | 2020-03-12 23:26 | Operative Report ---
Bedside Procedure - History of Present Illness Indication for Procedure: vasopressor administration Date: 03/12/20 Provider: LAUREN VEGA - Central Line Right Internal jugular Consent obtained: No - emergent condition Central line pre-insertion: Sterile PPE donned, Chloraprep applied, Sterile drapes applied Central line lumen type: Triple Anesthetic type: 1% Lidocaine mL's of anesthesia: 5 Ultrasound guided: Yes CM at insertion site: 17 Line secured with sutures: Yes Central line post-insertion: Blood return from lumens, Biopatch applied, Sutured, Sterile dressing applied, Position confirmed w/ CXR Number of attempts: 1 Complications: No
[2020-03-13] MEDS ORDERED: FLECAINIDE ACETATE 100 MG TABLET PO SCH (08:00)
[2020-03-13] MEDS ORDERED: PANTOPRAZOLE SODIUM 40 MG TABLET.DR PO SCH (08:00)
[2020-03-13] MEDS ORDERED: ALLOPURINOL 300 MG TABLET PO SCH (10:00)
[2020-03-13] MEDS ORDERED: FERROUS SULFATE 325 MG TABLET PO SCH (10:00)
[2020-03-13] MEDS ORDERED: (PENDING PHARMACY ID) (Calcium Carbonate/Vitamin D3 [Calcium 600-Vit D3 200 Tablet] 1 EACH PO SCH (10:00)
[2020-03-13] MEDS ORDERED: NEOMYCIN TP SCH (10:00)
[2020-03-13] MEDS ORDERED: GEMFIBROZIL 600 MG TABLET PO SCH (10:00)
[2020-03-13] MEDS ORDERED: BACITRACIN TP SCH (10:00)
[2020-03-13] MEDS ORDERED: [UNRECOGNIZED DRUG - OTHER] TP SCH (10:00)
[2020-03-13] MEDS ORDERED: FUROSEMIDE 20 MG TABLET PO SCH (10:00)
[2020-03-13] MEDS ORDERED: DILTIAZEM HCL 120 MG CAP.SR.24H PO SCH (10:00)
[2020-03-13] MEDS ORDERED: HYDROCHLOROTHIAZIDE 25 MG TABLET PO SCH (10:00)
[2020-03-13] MEDS ORDERED: POLYMYXIN B TP SCH (10:00)
[2020-03-13] MEDS ORDERED: NEOMY/BACITRAC ZN/POLY OINT 15 GM TP SCH (10:00)
--- NOTE | 2020-03-14 22:59 | Death Summary ---
Summary Date : 03/12/20 Time of :: 20:25 Autopsy: No Resuscitation Status: Do Not Resuscitate Consulting Provider: Dr. Hans Somers - Final Diagnosis (1) Cardiac arrest Is this a current diagnosis for this admission?: Yes (2) Acute respiratory failure with hypoxia Is this a current diagnosis for this admission?: Yes Hospital Course:: A 84-y/o female was transferred to the ICU, s/p cardiac arrest. She did required 20 minutes of CPR, was intubated and subsequent to ROSC. The patient was noted to be having recurrent episodes of aspiration throughout the day and progressively increasing oxygen requirements. The floor nurse reports, that patient had worsening confusion, which she received Ativan for agitation. Patient mental and respiratory status worsened, prompting call to the rapid response team. She subsequently deteriorated further and required a CODE BLUE call. Central line was emergently placed in the ICU immediately upon arrival due to lack of vascular access. Updated patient's son with critical condition which reported patient is DNR. Patient was noted O2 saturation < 80% and no pulse around 2024. Provider confirmed patient and immediately notified family.
== END 2020-03-12 20:29 | disposition expired | DRG 291 ==
LOC: ER 22:31 → EH 03-12 01:54 → 3W 03-12 04:00 → ICU 03-12 18:49
PROVIDERS: ADMIT Emergency Medicine; ATTEND Internal Medicine
PROC: 5A1935Z Respiratory Ventilation, Less than 24 Consecutive Hours (ICD-10-PCS; principal; 2020-03-12)
PROC: 0BH17EZ Insertion of Endotracheal Airway into Trachea, Via Natural or Artificial Opening (ICD-10-PCS; 2020-03-12)
PROC: 02HV33Z Insertion of Infusion Device into Superior Vena Cava, Percutaneous Approach (ICD-10-PCS; 2020-03-12)
DX: I11.0 Hypertensive heart disease with heart failure (principal); J96.01 Acute respiratory failure with hypoxia; N17.9 Acute kidney failure, unspecified; I50.33 Acute on chronic diastolic (congestive) heart failure; I46.9 Cardiac arrest, cause unspecified; E78.5 Hyperlipidemia, unspecified; K21.9 Gastro-esophageal reflux disease without esophagitis; I48.0 Paroxysmal atrial fibrillation; Z66 Do not resuscitate; T50.905A Adverse effect of unspecified drugs, medicaments and biological substances, initial encounter; Z95.0 Presence of cardiac pacemaker; Z90.49 Acquired absence of other specified parts of digestive tract; Z83.3 Family history of diabetes mellitus; Z82.49 Family history of ischemic heart disease and other diseases of the circulatory system
CPT/HCPCS: 31500; 36415; 36556; 71045; 74018; 80053; 82550; 82553; 82803; 82962; 83735; 83880; 84484; 85025; 87040; 92950; 93005; 93010; 93306; 94002; 99285; 99291; 99292; J0171; J0461; J0610; J1265; J1644; J1940; J2060; J2270; J2405; J3490